=== PATIENT | male | born 1985 | race Caucasian/White ===

== ENCOUNTER 2019-08-02 22:40 | Emergency (ER) | payer BC ==
[2019-08-02 22:57] VITALS: BP 125/89
--- NOTE | 2019-08-03 00:09 | XRay Report ---
Left ankle, 3 views INDICATION: Pain following injury today FINDINGS: There is soft tissue swelling adjacent to the lateral malleolus but no underlying fracture, dislocation or arthritic change. Signer Name: Cory Torre MD Signed: 08/03/2019 12:05 AM Workstation Name: [id number]
[2019-08-03] MEDS ORDERED: IBUPROFEN 600 MG TAB PO ONE (02:32)
--- NOTE | 2019-08-03 02:37 | Emergency Department Report ---
ED Lower Extremity HPI - General Chief Complaint: Extremity Injury, Lower Stated Complaint: LEFT ANKLE INJURY Time Seen by Provider: 08/03/19 02:20 Source: patient Mode of arrival: Ambulatory Limitations: No Limitations - History of Present Illness Initial Comments: Patient is a 33-year-old male presents emergency room with complaints of a left ankle injury that occurred around 8 PM last night. Patient states that he was playing volleyball and collided with another person and landed on someone's foot and had a inversion injury of his ankle. He states initially he was ambulatory but that it became more uncomfortable. He denies any numbness or weakness. He states he has pain with movement. Patient states he has injured this ankle before due to sports. He denies any past medical history. He states he has an allergy to tetracycline. - Related Data Previous Rx's Medication Instructions Recorded Last Taken Type Naproxen [EC-Naproxen] 500 mg PO BID PRN #20 tablet. 08/03/19 Unknown Rx Allergies Allergy/AdvReac Type Severity Reaction Status Date / Time Tetracyclines Allergy Hives Verified 08/02/19 23:38 ED Review of Systems ROS: Stated complaint: LEFT ANKLE INJURY Other details as noted in HPI Comment: All other systems reviewed and negative ED Past Medical Hx - Past Medical History Previous Medical History?: No - Surgical History Past Surgical History?: Yes Additional Surgical History: Left Pneunothorax - Social History Smoking Status: Current Every Day Smoker Substance Use Type: Marijuana - Medications Home Medications: Home Medications Medication Instructions Recorded Confirmed Last Taken Type Naproxen [EC-Naproxen] 500 mg PO BID PRN #20 tablet. 08/03/19 Unknown Rx ED Physical Exam - General Limitations: No Limitations General appearance: alert, in no apparent distress - Head Head exam: Present: atraumatic, normocephalic - Eye Eye exam: Present: normal appearance - ENT ENT exam: Present: mucous membranes moist - Extremities Exam Extremities exam: Present: other (edema present to the left lateral malleolus, decreased ROM of the left ankle secondary to pain, no TTP of the left foot or toes, FROM of the left foot and toes, achiles tendon is intact, 2+ dp and pt pulses, sensation intact) - Neurological Exam Neurological exam: Present: alert, oriented X3 - Psychiatric Psychiatric exam: Present: normal affect, normal mood - Skin Skin exam: Present: warm, dry, intact ED Course Vital Signs 08/02/19 22:52 Temperature 97.6 F Pulse Rate 79 Respiratory 18 Rate Blood Pressure 125/89 O2 Sat by Pulse 99 Oximetry ED Lower Extremity MDM - Radiology Data Radiology results: report reviewed left ankle XR: soft tissue swelling lateral malleolus, no fracture or dislocation - Medical Decision Making Patient is a 33-year-old male presents emergency room with complaints of a left ankle injury that occurred around 8 PM last night. Patient states that he was playing volleyball and collided with another person and landed on someone's foot and had a inversion injury of his ankle. He states initially he was ambulatory but that it became more uncomfortable. He denies any numbness or weakness. He states he has pain with movement. Patient states he has injured this ankle before due to sports. He denies any past medical history. He states he has an allergy to tetracycline. on exam: edema present to the left lateral malleolus, decreased ROM of the left ankle secondary to pain, no TTP of the left foot or toes, FROM of the left foot and toes, achiles tendon is intact, 2+ dp and pt pulses, sensation intact. left ankle XR: soft tissue swelling lateral malleolus, no fracture or dislocation. given prescription for naproxen. pt placed in ankle stirrup splint and given crutches. advised pt to please take medication as prescribed as needed. Please do not bear weight on the left leg until you have been cleared by an orthopedic doctor. Please be evaluated by an orthopedic doctor in the next 2-3 days for ligament injury. May use elevation of the leg, rest, ice or 15 minutes at a time. Return to the emergency room for any new or worsening symptoms. - Differential Diagnosis strain, sprain, fx, dislocation, ligament injury Critical care attestation.: If time is entered above; I have spent that time in minutes in the direct care of this critically ill patient, excluding procedure time. ED Disposition Clinical Impression: Left ankle sprain Qualifiers: Encounter type: initial encounter Involved ligament of ankle: unspecified ligament Qualified Code(s): S93.402A - Sprain of unspecified ligament of left ankle, initial encounter Disposition: TO HOME OR SELFCARE Is pt being admited?: No Does the pt Need Aspirin: No Condition: Stable Instructions: Ankle Sprain (ED), Ankle Stirrup Splint (ED) Additional Instructions: Please take medication as prescribed as needed. Please do not bear weight on the left leg until you have been cleared by an orthopedic doctor. Please be evaluated by an orthopedic doctor in the next 2-3 days for ligament injury. May use elevation of the leg, rest, ice or 15 minutes at a time. Return to the emergency room for any new or worsening symptoms. Prescriptions: Naproxen [EC-Naproxen] 500 mg PO BID PRN #20 tablet.dr THOMASON Reason: pain Referrals: VICTOR HUGO STYLES MD [Staff Physician] - 2-3 Days [facility] [Provider Group] - 2-3 Days Time of Disposition: 02:35 Print Language: SET[place]
== END 2019-08-03 02:45 | disposition home or self-care (01) ==
LOC: ED 22:40
DX: S93.402A Sprain of unspecified ligament of left ankle, initial encounter (principal); Z98.890 Other specified postprocedural states; F17.200 Nicotine dependence, unspecified, uncomplicated; F12.10 Cannabis abuse, uncomplicated; Z79.899 Other long term (current) drug therapy; Z88.8 Allergy status to other drugs, medicaments and biological substances; X58.XXXA Exposure to other specified factors, initial encounter; Y93.89 Activity, other specified; Y92.89 Other specified places as the place of occurrence of the external cause; Y99.8 Other external cause status

== ENCOUNTER 2019-10-22 00:29 | Emergency (ER) | payer BC ==
[2019-10-22 01:21] VITALS: BP 128/86
== END 2019-10-22 03:16 | disposition left against medical advice (07) ==
LOC: ED 00:29
DX: M79.601 Pain in right arm (principal); Z53.21 Procedure and treatment not carried out due to patient leaving prior to being seen by health care provider